=== PATIENT | female | born 1960 | race Caucasian/White ===

== ENCOUNTER → 2017-09-11 | Outpatient (CLI) | payer BC ==
[~2017-09-11] MED LIST: IBU-8800 MG PO; NOMEDS
--- NOTE | 2017-09-17 09:54 | RADIOLOGY REPORT PS360 ---
DIG MAMM-SCREEN JANIE W/CAD CAD Screening ORDERING PHYSICIAN : SANDRA KIMBROUGH APRN PATIENT AGE: 56 years GENDER: Female COMPARISON: Previous bilateral mammograms: August 2016, 2014, 2013, 2012, July diagnostic mammogram & ultrasound left breast INDICATION: Routine screening TECHNIQUE: Standard CC and MLO images were obtained. R2 CAD reviewed. FINDINGS: Minimal scattered fibroglandular most evident superior breast bilaterally , RIGHT BREAST: Stable right breast. With no significant new findings The stable focal area of likely fibroglandular density superior right breast MLO view again noted is similar to studies dating back to 2010 & 2012. Can be followed safely LEFT BREAST: No significant new findings Area density medial left breast on cc view is been present since 2010 and has not changed significantly. No associated density on MLO view IMPRESSION: Stable bilateral mammogram with no significant new findings BI-RADS CATEGORY: 2_Benign RECOMMENDED FOLLOWUP: 12M 12 MONTH FOLLOW-UP (A letter has been sent to the patient regarding results of the study.)
== END ==
LOC: RAD 10:34
DX: Z12.31 Encounter for screening mammogram for malignant neoplasm of breast (principal)
CPT/HCPCS: G0202